=== PATIENT | female | born 1960 | race Caucasian/White ===

== ENCOUNTER 2020-02-15 10:56 | Inpatient (IN) | payer BC, OTHER ==
[~2020-02-15] VITALS: Ht 160 cm; Wt 72.0 kg
--- NOTE | 2020-02-15 11:21 | NUR ---
PT TRANSFERRED FROM [facility] FOR [facility], PT HAS H/O GASTRIC BYPASS. PLACED ON VITALS MONITORS, CALL LIGHT WITHIN REACH.
[2020-02-15 11:52] LABS: BASOPHILS # (AUTO) 0.03 x10^3/uL (0-0.1); BASOPHILS % (AUTO) 0 % (0-1); EOSINOPHILS # (AUTO) 0.01 x10^3/uL (0-0.4); EOSINOPHILS % (AUTO) 0 % (1-7); LYMPHOCYTES # (AUTO) 1.29 x10^3/uL (1-3.4); LYMPHOCYTES % (AUTO) 15 % (22-44); MD NO; MEAN CORPUSCULAR HGB CONC 32.6 g/dL (32.4-35.8); MEAN PLATELET VOLUME 7.4 fL (7.4-10.4); MONOCYTES # (AUTO) 0.44 x10^3/uL (0.2-0.8); MONOCYTES % (AUTO) 5 % (2-9); NEUTROPHILS # (AUTO) 6.71 x10^3/uL (1.8-6.8); NEUTROPHILS % (AUTO) 79 % (42-75); PLATELET COUNT 350 x10^3/uL (130-400); RED BLOOD COUNT 4.73 x10^6/uL (3.82-5.3); RED CELL DISTRIBUTION WIDTH 14.3 % (9.6-15.2)
[2020-02-15 11:56] LABS: ALANINE AMINOTRANSFERASE 28 U/L (12-78); ALBUMIN 3.3 g/dL (3.4-5.0); ANION GAP 7 mmol/L (5-15); CHLORIDE 112 mmol/L (98-107); CREATININE 0.77 mg/dL (0.55-1.02)
[2020-02-15 11:57] LABS: ALKALINE PHOSPHATASE 87 U/L (45-117); BILIRUBIN,TOTAL 0.3 mg/dL (0.2-1.0); TOTAL PROTEIN 7.2 g/dL (6.4-8.2)
[2020-02-15] MEDS ORDERED: SODIUM CHLORIDE FLUSH 10ML SYR IVF ONE (12:00)
[2020-02-15] MEDS ORDERED: PROMETHAZINE 25 MG/ML, 1ML IM PRN (12:30)
[2020-02-15] MEDS ORDERED: morphine SULFATE 10 MG/ML, 1ML IVPush PRN (12:30)
[2020-02-15] MEDS ORDERED: ONDANSETRON 2MG/ML, 2ML IVPush PRN ×2 (12:30→16:30)
--- NOTE | 2020-02-15 12:58 | NUR ---
REPORT GIVEN TO LUDA LOZOYA.
[2020-02-15] MEDS ORDERED: SODIUM CHLORIDE 0.9% 1,000 ML IV SCH (13:00)
[2020-02-15] MEDS ORDERED: CHLORHEXIDINE 15 ML UDC ONE (15:19)
[2020-02-15] MEDS ORDERED: CHLORHEXIDINE 15 ML UDC MM ONE (15:30)
[2020-02-15] MEDS ORDERED: MIDAZOLAM 1 MG/ML, 2ML ONE (16:18)
[2020-02-15] MEDS ORDERED: FENTANYL PF 250 MCG/5ML ONE (16:18)
[2020-02-15] MEDS ORDERED: PROPOFOL 50 ML ONE ×2 (16:18→17:30)
[2020-02-15] MEDS ORDERED: ROCURONIUM 10MG/ML,5ML ONE (16:30)
[2020-02-15] MEDS ORDERED: PROMETHAZINE 25 MG/ML, 1ML IVPush PRN (16:30)
[2020-02-15] MEDS ORDERED: DIAZEPAM 5 MG/ML, 2ML IVPush PRN (16:30)
[2020-02-15] MEDS ORDERED: LABETALOL 5MG/ML, 20ML IV PRN (16:30)
[2020-02-15] MEDS ORDERED: DIPHENHYDRAMINE 50 MG/ML, 1ML IVPush PRN (16:30)
[2020-02-15] MEDS ORDERED: EPHEDRINE 50 MG/ML, 1ML IVPush PRN (16:30)
[2020-02-15] MEDS ORDERED: MEPERIDINE/PF 25MG/0.5ML IVPush PRN (16:30)
[2020-02-15] MEDS ORDERED: EPHEDRINE 50 MG/ML, 1ML IM PRN (16:30)
[2020-02-15] MEDS ORDERED: OXYcodone 5 MG/5 ML ORAL.SOL UDC PO PRN (16:30)
[2020-02-15] MEDS ORDERED: ONDANSETRON 2MG/ML, 2ML ONE (17:41)
[2020-02-15] MEDS ORDERED: CEFAZOLIN 1,000 MG ONE ×2 (17:41)
[2020-02-15] MEDS ORDERED: SUCCINYLCHOLINE 20 MG/ML, 10ML ONE (17:41)
[2020-02-15] MEDS: FENTANYL PF 100 MCG/2ML IV PRN ×2 (18:15→18:39)
[2020-02-15] MEDS ORDERED: FENTANYL PF 100 MCG/2ML ONE (18:20)
[2020-02-15] MEDS ORDERED: OXYcodone 5 MG/5 ML ORAL.SOL UDC ONE (18:20)
[2020-02-15] MEDS ORDERED: PROMETHAZINE 25 MG/ML, 1ML ONE (18:41)
[2020-02-15] MEDS ORDERED: HYDROmorphone 1 MG/ML, 1ML INJ ONE (18:41)
[2020-02-15] MEDS: HYDROmorphone 1 MG/ML, 1ML INJ IVPush PRN ×2 (19:00→19:45)
[2020-02-15 20:26] VITALS: BP 119/84
[2020-02-15] MEDS ORDERED: ACETAMINOPHEN 325 MG TABLET PO PRN (21:30)
[2020-02-15] MEDS ORDERED: ACETAMINOPHEN 650 MG SUPP PR PRN (21:30)
[2020-02-15] MEDS ORDERED: DIPHENHYDRAMINE 50 MG/ML, 1ML IV PRN (21:30)
[2020-02-15] MEDS: morphine SULFATE 10 MG/ML, 1ML IV PRN ×2 (21:59→23:10)
[2020-02-15] MEDS: ONDANSETRON 2MG/ML, 2ML IV PRN (23:06)
[2020-02-16] MEDS: D5%-LACTATED RINGERS 1,000 ML IV SCH ×3 (00:15→19:03)
[2020-02-16 00:30] VITALS: BP 107/77
[2020-02-16] MEDS: KETOROLAC 30 MG/1 ML IV PRN ×4 (01:47→23:33)
[2020-02-16] MEDS: morphine SULFATE 10 MG/ML, 1ML IV PRN ×2 (03:27→06:35)
[2020-02-16 05:10] VITALS: BP 99/68
[2020-02-16 05:56] LABS: BASOPHILS # (AUTO) 0.02 x10^3/uL (0-0.1); BASOPHILS % (AUTO) 0 % (0-1); EOSINOPHILS # (AUTO) 0.04 x10^3/uL (0-0.4); EOSINOPHILS % (AUTO) 1 % (1-7); LYMPHOCYTES # (AUTO) 1.54 x10^3/uL (1-3.4); LYMPHOCYTES % (AUTO) 21 % (22-44); MD NO; MEAN CORPUSCULAR HEMOGLOBIN 29.6 pg (27.0-34.8); MEAN CORPUSCULAR HGB CONC 33.2 g/dL (32.4-35.8); MEAN PLATELET VOLUME 7.7 fL (7.4-10.4); MONOCYTES # (AUTO) 0.49 x10^3/uL (0.2-0.8); MONOCYTES % (AUTO) 7 % (2-9); NEUTROPHILS % (AUTO) 72 % (42-75); PLATELET COUNT 296 x10^3/uL (130-400); RED CELL DISTRIBUTION WIDTH 14.1 % (9.6-15.2)
[2020-02-16 06:08] LABS: ALBUMIN 2.5 g/dL (3.4-5.0); ANION GAP 6 mmol/L (5-15); CALCIUM 7.4 mg/dL (8.5-10.1); CHLORIDE 111 mmol/L (98-107)
[2020-02-16 06:09] LABS: CREATININE 0.69 mg/dL (0.55-1.02)
[2020-02-16 08:15] VITALS: BP 82/56
[2020-02-16] MEDS ORDERED: ESTR0.9T PO (09:39)
[2020-02-16] MEDS ORDERED: BUPR300T49 PO (09:39)
[2020-02-16] MEDS ORDERED: Singulair (09:39)
[2020-02-16] MEDS: BUPROPION SR 150 MG TABLET PO SCH (10:32)
[2020-02-16] MEDS ORDERED: ESTROGEN CONJUGATED 0.3 MG TABLET PO SCH (11:00)
[2020-02-16] MEDS ORDERED: ESTROGEN CONJUGATED 0.9 MG PO SCH (11:00)
[2020-02-16] MEDS ORDERED: BUPROPION HCL 450 MG PO SCH (13:00)
[2020-02-16] MEDS ORDERED: LACTATED RINGERS 1,000 ML IVBOLUS ONE (13:30)
[2020-02-16 14:30] VITALS: BP 100/67
[2020-02-16] MEDS: ONDANSETRON 2MG/ML, 2ML IV PRN (17:32)
[2020-02-16 19:32] VITALS: BP 99/60
[2020-02-16] MEDS: TOPIRAMATE 25 MG TABLET PO SCH (21:09)
[2020-02-17 00:29] VITALS: BP 117/70
[2020-02-17] MEDS: morphine SULFATE 10 MG/ML, 1ML IV PRN (02:55)
[2020-02-17] MEDS: D5%-LACTATED RINGERS 1,000 ML IV SCH ×3 (03:48→20:37)
[2020-02-17 05:33] LABS: ANION GAP 4 mmol/L (5-15); CALCIUM 7.6 mg/dL (8.5-10.1); CHLORIDE 111 mmol/L (98-107); CREATININE 0.56 mg/dL (0.55-1.02)
[2020-02-17 05:54] LABS: BASOPHILS # (AUTO) 0.03 x10^3/uL (0-0.1); BASOPHILS % (AUTO) 1 % (0-1); EOSINOPHILS # (AUTO) 0.09 x10^3/uL (0-0.4); EOSINOPHILS % (AUTO) 2 % (1-7); LYMPHOCYTES # (AUTO) 1.55 x10^3/uL (1-3.4); LYMPHOCYTES % (AUTO) 27 % (22-44); MD NO; MEAN CORPUSCULAR HEMOGLOBIN 28.8 pg (27.0-34.8); MEAN CORPUSCULAR HGB CONC 31.9 g/dL (32.4-35.8); MONOCYTES # (AUTO) 0.45 x10^3/uL (0.2-0.8); MONOCYTES % (AUTO) 8 % (2-9); NEUTROPHILS # (AUTO) 3.59 x10^3/uL (1.8-6.8); NEUTROPHILS % (AUTO) 63 % (42-75); PLATELET COUNT 263 x10^3/uL (130-400); RED BLOOD COUNT 3.77 x10^6/uL (3.82-5.3); RED CELL DISTRIBUTION WIDTH 14.3 % (9.6-15.2)
[2020-02-17 07:25] VITALS: BP 103/69
[2020-02-17] MEDS: BUPROPION SR 150 MG TABLET PO SCH (08:55)
[2020-02-17] MEDS: ESTROGEN CONJUGATED 0.3 MG TABLET PO SCH (08:56)
[2020-02-17] MEDS ORDERED: ESTROGEN CONJUGATED 0.9 MG PO SCH (09:00)
[2020-02-17 14:20] VITALS: BP 110/76
[2020-02-17] MEDS ORDERED: HYDROcodone/APAP 5/325 TABLET PO PRN (16:30)
[2020-02-17 18:49] VITALS: BP 110/73
[2020-02-17] MEDS: TOPIRAMATE 25 MG TABLET PO SCH (20:36)
[2020-02-17] MEDS: KETOROLAC 30 MG/1 ML IV PRN (20:36)
[2020-02-17] MEDS: HYDROcodone/APAP 5/325 TABLET PO PRN (21:35)
[2020-02-17] MEDS: DIPHENHYDRAMINE 25 MG CAPSULE PO PRN (21:40)
[2020-02-18] MEDS ORDERED: HYDROcodone/APAP 5/325 TABLET PO PRN (00:30)
[2020-02-18] MEDS: HYDROcodone/APAP 5/325 TABLET PO PRN ×5 (02:16→19:27)
[2020-02-18 02:17] VITALS: BP 110/75
[2020-02-18] MEDS: D5%-LACTATED RINGERS 1,000 ML IV SCH ×3 (04:39→20:27)
[2020-02-18 05:17] LABS: ANION GAP 4 mmol/L (5-15); CALCIUM 7.6 mg/dL (8.5-10.1); CHLORIDE 112 mmol/L (98-107)
[2020-02-18 05:18] LABS: CREATININE 0.63 mg/dL (0.55-1.02)
[2020-02-18] MEDS: KETOROLAC 30 MG/1 ML IV PRN ×3 (06:03→18:39)
[2020-02-18 07:41] VITALS: BP 100/68
[2020-02-18] MEDS: ESTROGEN CONJUGATED 0.3 MG TABLET PO SCH (08:46)
[2020-02-18] MEDS: BUPROPION SR 150 MG TABLET PO SCH (08:46)
[2020-02-18 12:11] VITALS: BP 113/78
[2020-02-18] MEDS: TOPIRAMATE 25 MG TABLET PO SCH (19:27)
[2020-02-18 20:22] VITALS: BP 110/75
[2020-02-18] MEDS: DIPHENHYDRAMINE 25 MG CAPSULE PO PRN (20:43)
[2020-02-19] MEDS: HYDROcodone/APAP 5/325 TABLET PO PRN ×3 (00:04→09:28)
[2020-02-19 00:11] VITALS: BP 114/79
[2020-02-19] MEDS: D5%-LACTATED RINGERS 1,000 ML IV SCH ×2 (04:41→12:00)
[2020-02-19 07:37] VITALS: BP 110/75
[2020-02-19] MEDS: ESTROGEN CONJUGATED 0.3 MG TABLET PO SCH (09:28)
[2020-02-19] MEDS: BUPROPION SR 150 MG TABLET PO SCH (09:28)
[2020-02-19] MEDS: LACTULOSE 20 GM/30 ML UDC PO SCH ×2 (09:29→13:00)
[2020-02-19 12:06] VITALS: BP 110/77
[2020-02-19] MEDS ORDERED: ONDA4TAB7 PO (13:27)
[2020-02-19] MEDS ORDERED: DOCU-131 PO (13:27)
[2020-02-19] MEDS ORDERED: HYDR-3240 PO (13:28)
== END 2020-02-19 13:41 | disposition home or self-care (01) | DRG 337 ==
LOC: ED 11:24 → EDIP 12:00 → 4NE 13:23 → DCLOUNGE 02-19 13:41
PROVIDERS: ADMIT Internal Medicine; ATTEND Internal Medicine
PROC: 0DN80ZZ Release Small Intestine, Open Approach (ICD-10-PCS; principal; 2020-02-16)
DX: K56.600 Partial intestinal obstruction, unspecified as to cause (principal); F32.9 Major depressive disorder, single episode, unspecified; G89.29 Other chronic pain; M54.9 Dorsalgia, unspecified; J45.909 Unspecified asthma, uncomplicated; K66.0 Peritoneal adhesions (postprocedural) (postinfection); Z20.828 Contact with and (suspected) exposure to other viral communicable diseases; Z90.710 Acquired absence of both cervix and uterus; Z98.84 Bariatric surgery status; Z98.1 Arthrodesis status
CPT/HCPCS: 36415; 96374; 99285; J7121; 80048; 80053; 82040; 85025; 87635; G0378; J0690; J1170; J1885; J2250; J2405; J2550; J2704; J3010; C1765; J0330; J1200; J2270; J7030; J7120; Q0163